=== PATIENT | female | born 1985 | race Hispanic/Latino ===

== ENCOUNTER 2017-09-19 00:03 | Emergency (ER) | payer OTHER, SELFPAY ==
[2017-09-19 00:05] VITALS: BMI 21.4
[2017-09-19 00:16] VITALS: TEMP 97.6
[2017-09-19] MEDS ORDERED: Morphine 4 mg/ml ISec IM STA (00:18)
--- NOTE | 2017-09-19 00:24 | ED PDOC ---
Arrival/HPI - General Chief Complaint: Abdominal Pain Time Seen by Provider: 09/19/17 00:11 Historian: Patient - History of Present Illness Narrative History of Present Illness (Text): 09/19/17 00:28 Rena Oglesby is a 32 year old female, whose past medical history includes a UTI treated with antibiotics, who presents to the emergency department complaining of a 3mm cyst causing a stabbing pain in her lower abdomen radiating to her back that began at 23:20 tonight. Patient states that she has had the cyst for a while now and has been taking 800 mg Ibuprofen for the pain which has worked in the past. Patient confirms that she has taken 800 mg of Ibuprofen tonight with no relief. Patient says that pain is spontaneous and usually occurs before or during her period. Patient is currently on her menstrual cycle. Patient denies any fever, chills, chest pain, shortness of breath, nausea, vomiting, diarrhea, urinary symptoms, back pain, neck pain, headache, dizziness, or any other complaints. Time/Duration: 1 hour Symptom Onset: Sudden Quality: Stabbing Activities at Onset: Light Context: Home Past Medical History - Provider Review Nursing Documentation Reviewed: Yes - Cardiac Hx Cardiac Disorders: No - Pulmonary Hx Respiratory Disorders: No - Neurological Hx Neurological Disorder: No - HEENT Hx HEENT Disorder: No - Renal Hx Renal Disorder: No - Endocrine/Metabolic Hx Endocrine Disorders: No - Hematological/Oncological Hx Blood Disorders: No - Integumentary Hx Dermatological Disorder: No - Musculoskeletal/Rheumatological Hx Musculoskeletal Disorders: No - Gastrointestinal Hx Gastrointestinal Disorders: No - Genitourinary/Gynecological Hx Genitourinary Disorders: Yes Other/Comment: cyst - Psychiatric Hx Psychophysiologic Disorder: No Hx Substance Use: No - Anesthesia Hx Anesthesia: No Family/Social History - Physician Review Nursing Documentation Reviewed: Yes Family/Social History: No Known Family HX Smoking Status: Never Smoked Hx Alcohol Use: No Hx Substance Use: No Allergies/Home Meds Allergies/Adverse Reactions: Allergies No Known Allergies Allergy (Verified 09/19/17 00:05) Review of Systems - Physician Review All systems were reviewed & negative as marked: Yes - Review of Systems Constitutional: absent: Fevers, Night Sweats Eyes: absent: Vision Changes ENT: absent: Hearing Changes Respiratory: absent: SOB, Cough Cardiovascular: absent: Chest Pain Gastrointestinal: Abdominal Pain Genitourinary Female: absent: Dysuria, Frequency Musculoskeletal: Back Pain Skin: absent: Rash, Pruritis Neurological: absent: Headache, Dizziness Endocrine: absent: Diaphoresis Hemo/Lymphatic: absent: Adenopathy Psychiatric: absent: Depression Physical Exam Vital Signs Reviewed: Yes Vital Signs Temp Pulse Resp BP Pulse Ox 09/19/17 02:00 82 18 119/67 100 09/19/17 00:15 97.6 F 92 H 19 137/83 98 Temperature: Afebrile Blood Pressure: Normal Pulse: Tachycardic Respiratory Rate: Normal Appearance: Positive for: Well-Appearing, Non-Toxic, Comfortable Pain Distress: None Mental Status: Positive for: Alert and Oriented X 3 - Systems Exam Head: Present: Atraumatic, Normocephalic Pupils: Present: PERRL Extroacular Muscles: Present: EOMI Conjunctiva: Present: Normal Mouth: Present: Moist Mucous Membranes Neck: Present: Normal Range of Motion Respiratory/Chest: Present: Clear to Auscultation, Good Air Exchange. No: Respiratory Distress, Accessory Muscle Use Cardiovascular: Present: Regular Rate and Rhythm, Normal S1, S2. No: Murmurs Abdomen: Present: Tenderness (subjective suprapubic tenderness), Normal Bowel Sounds, Guarding (mild suprapubic garuding ). No: Distention, Peritoneal Signs Upper Extremity: Present: Normal Inspection. No: Cyanosis, Edema Lower Extremity: Present: Normal Inspection. No: Edema Neurological: Present: GCS=15, CN II-XII Intact, Speech Normal Skin: Present: Warm, Dry, Normal Color. No: Rashes Psychiatric: Present: Alert, Oriented x 3, Normal Insight, Normal Concentration Medical Decision Making ED Course and Treatment: 09/19/17 00:36 Impression: 32 year old female complaining of a 3mm cyst causing a stabbing pain in her lower abdomen radiating to her back that began at 23:20 tonight. Differential Diagnosis included but are not limited to: ovarian torsion UTI dysmenorrhea Plan: -- Urinalysis -- Labs -- Morphine, Zofran -- Reassess and disposition Progress Notes:patient was offered morphine for pain relief but states that she could only tolerate half the dose thatwas prescribed . Patient states that she feels "high" but doesn't have any relief of her pain 09/19/17 01:54 On reevaluation, Patient is sleeping and feels much better. Will be discharged home. - Lab Interpretations Lab Results: 09/19/17 00:20 09/19/17 00:20 Lab Results 09/19/17 00:20: Sodium 143, Potassium 3.9, Chloride 106, Carbon Dioxide 25, Anion Gap 16, BUN 13, Creatinine 0.7, Est GFR ( Amer) > 60, Est GFR (Non- Af Amer) > 60, Random Glucose 94, Calcium 9.4, Total Bilirubin 0.4, AST 26, ALT 33, Alkaline Phosphatase 49, Total Protein 7.3, Albumin 4.7, Globulin 2.6, Albumin/Globulin Ratio 1.8 09/19/17 00:20: WBC 9.8, RBC 4.70, Hgb 15.1, Hct 43.3, MCV 92.1, MCH 32.1, MCHC 34.9, RDW 12.4, Plt Count 235, MPV 10.5, Gran % 46.3 L, Lymph % (Auto) 44.8 H, [place] % (Auto) 5.9, Eos % (Auto) 2.7, Baso % (Auto) 0.3, Gran # 4.55, Lymph # 4.4 H, [place] # 0.6, Eos # 0.3, Baso # 0.03 09/19/17 00:10: Urine Opiates Screen Negative, Urine Methadone Screen Negative, Ur Barbiturates Screen Negative, Ur Phencyclidine Scrn Negative, Ur Amphetamines Screen Negative, U Benzodiazepines Scrn Negative, U Oth Cocaine Metabols Negative, U Cannabinoids Screen Negative 09/19/17 00:10: Urine Color Red, Urine Appearance Cloudy, Urine pH 6.0, Ur Specific [place] 1.010, Urine Protein 30 H, Urine Glucose (UA) Negative, Urine Ketones Negative, Urine Blood Large H, Urine Nitrate Negative, Urine Bilirubin Negative, Urine Urobilinogen 0.2, Ur Leukocyte Esterase Trace H, Urine RBC Tntc , Urine WBC 0 - 2, Ur Epithelial Cells 0 - 2 I have reviewed the lab results: Yes - Medication Orders Current Medication Orders: Discontinued Medications Ketorolac Tromethamine (Toradol) 15 mg IVP STAT STA Stop: 09/19/17 01:00 Last Admin: 09/19/17 01:06 Dose: 15 mg MAR Pain Assessment Document 09/19/17 01:06 RD (Rec: 09/19/17 01:06 RD [id number]) Pain Reassessment Is this a pain reassessment? Yes Sleep Is patient sleeping during reassessment? No Presence of Pain Presence of Pain Yes Pain Scale Used Pain Scale Used Numeric Location Upper or Lower Lower Pain Location Body Site Abdomen IVP Administration Document 09/19/17 01:06 RD (Rec: 09/19/17 01:06 RD [id number]) Charges for Administration # of IVP Administrations 1 Morphine Sulfate (Morphine) 4 mg IVP STAT STA Stop: 09/19/17 00:34 Last Admin: 09/19/17 00:43 Dose: 2 mg MAR Pain Assessment Document 09/19/17 00:43 RD (Rec: 09/19/17 00:47 RD [id number]) Pain Reassessment Is this a pain reassessment? No Sleep Is patient sleeping during reassessment? No Presence of Pain Presence of Pain Yes Location Upper or Lower Lower Pain Location Body Site Abdomen IVP Administration Document 09/19/17 00:43 RD (Rec: 09/19/17 00:47 RD [id number]) Charges for Administration # of IVP Administrations 1 Ondansetron HCl (Zofran Odt) 4 mg PO STAT STA Stop: 09/19/17 00:19 Last Admin: 09/19/17 00:40 Dose: 4 mg - Scribe Statement The provider has reviewed the documentation as recorded by the Danica Peralta Provider Scribe Attestation: All medical record entries made by the Kayleneibjosue were at my direction and personally dictated by me. I have reviewed the chart and agree that the record accurately reflects my personal performance of the history, physical exam, medical decision making, and the department course for this patient. I have also personally directed, reviewed, and agree with the discharge instructions and disposition. Disposition/Present on Arrival - Present on Arrival Any Indicators Present on Arrival: No History of DVT/PE: No History of Uncontrolled Diabetes: No Urinary Catheter: No History of Decub. Ulcer: No History Surgical Site Infection Following: None - Disposition Have Diagnosis and Disposition been Completed?: Yes Diagnosis: Dysmenorrhea Disposition: HOME/ ROUTINE Disposition Time: 03:02 Condition: GOOD Discharge Instructions (ExitCare): Dysmenorrhea (ED) Print Language: OCCIT[place] Prescriptions: Ketorolac Tromethamine [Toradol] 10 mg PO TID PRN 5 Days #15 tab PRN Reason: Pain, Mild (1-3) Referrals: [facility] [place] [Outside] - Follow up with primary Forms: [employer] ([place])
[2017-09-19] MEDS ORDERED: Morphine 4 mg/ml ISec IVP STA (00:27)
[2017-09-19 00:39] LABS: URINE BILIRUBIN NEGATIVE (NEGATIVE); URINE BLOOD LARGE (NEGATIVE); URINE GLUCOSE (UA) NEGATIVE (NEGATIVE); URINE KETONE NEGATIVE (NEGATIVE); URINE LEUKOCYTE ESTERASE TRACE Leu/uL (NEGATIVE); URINE PROTEIN 30 mg/dL (<30 mg/dL); URINE UROBILINOGEN 0.2 E.U./dL (<1 E.U./dL)
[2017-09-19] MEDS: Morphine 2 mg/ml ISec IVP STA ×2 (00:43→00:44)
[2017-09-19 00:51] LABS: URINE APPEARANCE CLOUDY (CLEAR); URINE COLOR RED (YELLOW)
[2017-09-19 01:02] LABS: URINE EPITHELIAL CELLS 0 - 2 /hpf (0-5); URINE RBC TNTC /hpf (0-2); URINE WBC 0 - 2 /hpf (0-6)
[2017-09-19 01:33] LABS: BASO # 0.03 K/mm3 (0.0-2.0); BASO % 0.3 % (0.0-3.0); EOS # 0.3 (0.0-0.7); EOS % 2.7 % (1.5-5.0); GRAN # 4.55 (1.4-6.5); GRAN % 46.3 % (50.0-68.0); HEMATOCRIT 43.3 % (36.0-48.0); LYMPH # 4.4 (1.2-3.4); LYMPH % 44.8 % (22.0-35.0); MEAN CELL VOLUME 92.1 fl (80.0-105.0); MEAN CORPUSCULAR HEMOGLOBIN 32.1 pg (25.0-35.0); MEAN CORPUSCULAR HGB CONC 34.9 g/dl (31.0-37.0); MEAN PLATELET VOLUME 10.5 fl (7.0-11.0); MONO # 0.6 (0.1-0.6); MONO % 5.9 % (1.0-6.0); RED CELL DISTRIBUTION WIDTH 12.4 % (11.5-14.5); WHITE BLOOD COUNT 9.8 10^3/ul (4.5-11.0)
[2017-09-19 01:34] LABS: ALB/GLOB RATIO 1.8 (1.1-1.8); ALKALINE PHOSPHATASE 49 U/L (38-126); ALT/SGPT 33 U/L (7-56); AST/SGOT 26 U/L (14-36); BILIRUBIN,TOTAL 0.4 mg/dL (0.2-1.3); BLOOD UREA NITROGEN 13 mg/dL (7-21); CALCIUM 9.4 mg/dL (8.4-10.5); CARBON DIOXIDE 25 mmol/L (21-33); CHLORIDE 106 mmol/L (98-107); GFR AFRICAN-AMERICAN > 60; GLUCOSE,RANDOM 94 mg/dL (70-110); POTASSIUM 3.9 mmol/L (3.6-5.0); SODIUM 143 mmol/L (132-148); TOTAL PROTEIN 7.3 g/dL (5.8-8.3)
[2017-09-19 02:10] VITALS: BP 119/67; PULSE 82; RESP 18; O2SAT 100
== END 2017-09-19 02:05 | disposition home or self-care (01) ==
LOC: ED 00:03
DX: N94.6 Dysmenorrhea, unspecified (principal)
CPT/HCPCS: 80053; 80324; 80345; 80346; 80349; 80353; 80358; 80361; 81001; 83992; 85025; 87086; 96374; 96375; 99284; J1885; J2270